=== PATIENT | female | born 1995 | race Caucasian/White ===

== ENCOUNTER 2018-08-14 10:08 | Inpatient (IN) ==
--- NOTE | 2018-08-14 10:28 | ED ---
History of Present Illness Service: [facility] [place] Care Physician: No Primary Care Physician Chief Complaint: Contractions History of Present Illness: This 23 y/o female , EGA 40 3/7 wks, presents to the OB ED with c/o ctxs. They started around 8 AM. +FM, No VB. She denies probs during this . She has had PNC at [facility]. Weeks Gestation:: 40 Para: 1 : 3 Review of Systems All other systems reviewed negative except as stated in HPI PMFSH - Medical / Surgical Hx Neg / Unobtainable Medical Problems Denied: Yes Surgical History: No Previous Surgery - Social History I have reviewed the patient's Social History: Yes - Tobacco History Smoking Status: Never smoker - Alcohol History How Often Do You Have a Drink Containing Alcohol: Never - Substance Use History Substance History: No History of Abuse - Travel History History of Recent Travel: No Medications and Allergies Allergies Allergy/AdvReac Type Severity Reaction Status Date / Time No Known Allergies Allergy Verified 08/14/18 10:29 Exam Narrative: GENERAL: Well-nourished, well-developed patient. SKIN: Warm and dry. HEAD: Normocephalic and atraumatic. EYES: No scleral icterus. No injection or drainage. ENT: No nasal drainage noted. Mucous membranes pink. Airway patent. NECK: Supple, trachea midline. No JVD. CARDIOVASCULAR: Regular rate and rhythm without murmurs, gallops, or rubs. RESPIRATORY: Breath sounds equal bilaterally. No accessory muscle use. ABDOMEN/GI: Abdomen soft, non-tender, bowel sounds present, no rebound, no guarding Gravid GENITOURINARY: External Genitalia: intact and normal in appearance BUS glands: [normal] Cervix: [Ant] Dilatation: [6-7] Effacement: [100] Station: [+1] Presentation: [vertex] Membranes: [intact] Uterine Contractions: [yes] FHT's: Category: [1] Baseline: [150] Reactive: [Yes] Variability: [Mod] Decels: [No] +Accels EXTREMITIES: No cyanosis or edema. BACK: Nontender without obvious deformity. No CVA tenderness. NEUROLOGICAL: Awake and alert. Motor and sensory grossly within normal limits. Five out of 5 muscle strength in all muscle groups. Normal speech. Results - Labs Group B Strep: Negative Assessment and Plan - Diagnosis (1) Uterine contractions during Code(s): O62.2 - Other uterine inertia Status: Acute (2) 40 weeks gestation of Code(s): Z3A.40 - 40 weeks gestation of Status: Acute - Plan Admit for labor Discharge Plan - Physicians Team ED Provider: Nini Huang Primary Care Provider: Primary Care Physici,No - Discharge Instructions Print Language: French
[2018-08-14] MEDS ORDERED: miSOPROStol 200 MCG Tablet RECTAL PRN (10:35)
[2018-08-14] MEDS ORDERED: Sodium Chlor 0.9% Inj 500 ML IV.SIG PRN (10:35)
[2018-08-14] MEDS ORDERED: Methylergonovine Inj 0.2 MG/ML Ampul IM PRN (10:35)
[2018-08-14] MEDS ORDERED: Carboprost Tromethamine Inj 250 MCG/ML Ampul IM PRN (10:35)
[2018-08-14] MEDS ORDERED: fentaNYL Citrate Inj 100 MCG/2 ML Ampul IV.PUSH PRN ×2 (10:35)
[2018-08-14] MEDS ORDERED: Naloxone Inj 0.4 MG/ML Vial IV.PUSH PRN ×2 (10:35→11:16)
[2018-08-14] MEDS ORDERED: Sod Chloride 0.9% Inj 1,000 ML IV.CONT PRN (10:35)
[2018-08-14] MEDS ORDERED: Tranexamic Acid Inj 1,000 MG in Sodium Chlor 0.9% Inj 100 ML IV.SIG PRN (10:35)
[2018-08-14] MEDS ORDERED: Silver Nitrate/Potassium Nitrate Applicator Sticks TOPICAL PRN (10:35)
[2018-08-14] MEDS ORDERED: Oxytocin 30 Units/500ml Premix 30 UNITS/500 ML BAG IV.SIG ONE (10:35)
[2018-08-14] MEDS ORDERED: fentaNYL Citrate Inj 100 MCG/2 ML Ampul ONE (10:37)
--- NOTE | 2018-08-14 10:39 | P.HPOB ---
History of Present Illness [place] [facility] [place] Physician: No Primary Care Physician Chief Complaint: Contractions History of Present Illness: This 23 y/o female , EGA 40 3/7 wks, presents to the OB ED with c/o ctxs. They started around 8 AM. +FM, No VB. She denies probs during this . She has had PNC at [facility]. Weeks Gestation:: 40 Para: 1 : 3 Review of Systems All other systems reviewed negative except as stated in HPI PMFSH - Medical / Surgical Hx Neg / Unobtainable Medical Problems Denied: Yes Surgical History: No Previous Surgery - Social History I have reviewed the patient's Social History: Yes - Tobacco History Smoking Status: Never smoker - Alcohol History How Often Do You Have a Drink Containing Alcohol: Never - Substance Use History Substance History: No History of Abuse - Travel History History of Recent Travel: No Medications and Allergies Allergies Allergy/AdvReac Type Severity Reaction Status Date / Time No Known Allergies Allergy Verified 08/14/18 10:29 Exam Narrative: GENERAL: Well-nourished, well-developed patient. SKIN: Warm and dry. HEAD: Normocephalic and atraumatic. EYES: No scleral icterus. No injection or drainage. ENT: No nasal drainage noted. Mucous membranes pink. Airway patent. NECK: Supple, trachea midline. No JVD. CARDIOVASCULAR: Regular rate and rhythm without murmurs, gallops, or rubs. RESPIRATORY: Breath sounds equal bilaterally. No accessory muscle use. ABDOMEN/GI: Abdomen soft, non-tender, bowel sounds present, no rebound, no guarding Gravid GENITOURINARY: External Genitalia: intact and normal in appearance BUS glands: [normal] Cervix: [Ant] Dilatation: [6-7] Effacement: [100] Station: [+1] Presentation: [vertex] Membranes: [intact] Uterine Contractions: [yes] FHT's: Category: [1] Baseline: [150] Reactive: [Yes] Variability: [Mod] Decels: [No] +Accels EXTREMITIES: No cyanosis or edema. BACK: Nontender without obvious deformity. No CVA tenderness. NEUROLOGICAL: Awake and alert. Motor and sensory grossly within normal limits. Five out of 5 muscle strength in all muscle groups. Normal speech. Results - Labs Group B Strep: Negative Assessment and Plan - Diagnosis (1) Uterine contractions during Code(s): O62.2 - Other uterine inertia Status: Acute (2) 40 weeks gestation of Code(s): Z3A.40 - 40 weeks gestation of Status: Acute - Plan Admit for labor Discharge Plan - Physicians Team ED Provider: Nini Huang Primary Care Provider: Primary Care Physici,No - Discharge Instructions Print Language: Urdu
[2018-08-14] MEDS ORDERED: Citric Acid/Sodium Citrate Liq 30 ML UDC PO SCH (10:45)
[2018-08-14 10:53] LABS: Baso % (Auto) 0.4 % (0.0-2.0); Eos % (Auto) 0.4 % (0.0-4.0); Hematocrit 36.3 % (35.0-46.0); Hemoglobin 12.4 gm/dL (11.6-15.3); Lymph # (Auto) 1.7 th/mm3 (1.0-4.8); Lymph % (Auto) 16.5 % (9.0-44.0); Mean Corpuscular HGB Conc 34.1 % (32.0-36.0); Mean Corpuscular Hemoglobin 29.2 pg (27.0-34.0); Mean Corpuscular Volume 85.7 fL (80.0-100.0); Mean Platelet Volume 8.5 fL (7.0-11.0); Mono # (Auto) 0.6 th/mm3 (0.0-0.9); Mono % (Auto) 6.1 % (0.0-8.0); Neut % (Auto) 76.6 % (16.0-70.0); Platelet Count 240 th/mm3 (150-450); Red Blood Count 4.24 mil/mm3 (4.00-5.30); Red Cell Distribution Width 13.5 % (11.6-17.2); White Blood Count 10.5 th/mm3 (4.0-11.0)
[2018-08-14] MEDS ORDERED: Lidocaine 1% Inj 50 ML Vial ONE (10:58)
--- NOTE | 2018-08-14 11:14 | P.OBDELI ---
Weeks Gestation: 40 Patient Started Active Labor: Yes Medical Induction of Labor: No Artificial Rupture of Membrane: No Anesthesia: Lidocaine local to perineum Episiotomy: none Vaginal Delivery: Spontaneous Presentation: Vertex Nuchal Cord: x1 Delayed Cord Clamping (45 sec): Yes Placenta: Spontaneous delivery Laceration: 2 deg Repair: Vicryl running (3-0) Infant: Male Infant Male A Infant Delivery Date: 08/14/18 Weight: 3.635 kg score (1 min): 8 score (5 min): 9
[2018-08-14] MEDS ORDERED: Oxytocin 30 Units/500ml Premix 30 UNITS/500 ML BAG IV.CONT PRN (11:16)
[2018-08-14] MEDS ORDERED: Acetaminophen 325 MG Tablet PO PRN (11:16)
[2018-08-14] MEDS ORDERED: Benzocaine 20% Top Spray 60 ML Can TOPICAL PRN (11:16)
[2018-08-14] MEDS ORDERED: Witch Hazel 50%/Glyderin 12.5% 40 Pad Jar RECTAL PRN (11:16)
[2018-08-14] MEDS ORDERED: Bisacodyl 10 MG Supp RECTAL PRN (11:16)
[2018-08-14 11:19] VITALS: RESP 18
[2018-08-14 12:25] LABS: Amorphous Sediment,Urine Rare /hpf; Bilirubin,Urine Negative (Negative); Clarity,Urine Hazy (Clear); Color,Urine Yellow (Yellw/Straw); Glucose,Urine (UA) Negative (Negative); Leukocyte Esterase,Urine Negative (Negative); Mucus,Urine Few /lpf (Occasional); Nitrite,Urine Negative (Negative); Specific Gravity,Urine 1.013 (1.002-1.035); Squamous Epithelial Cell,Urine 1 /hpf (0-5)
[2018-08-14 12:33] LABS: Amphetamine Screen,Urine Neg (Neg); Barbiturate Screen,Urine Neg (Neg); Cannabinoid Screen,Urine Neg (Neg); Cocaine Screen,Urine Neg (Neg)
[2018-08-14 12:36] LABS: Opiate Screen,Urine Neg (Neg)
[2018-08-14] MEDS ORDERED: Diphtheria/Tetanus/Pertussis Vaccine Inj 0.5 ML Syringe IM ONE (16:00)
[2018-08-14] MEDS ORDERED: Measles/Mumps/Rubella Vaccine Inj 0.5 ML Vial SQ ONE (16:00)
[2018-08-14] MEDS ORDERED: Zolpidem Tartrate 5 MG Tablet PO PRN (21:00)
--- NOTE | 2018-08-15 07:24 | P.PNOB ---
Subjective Post day: 1 Interval history: Pt seen and examined this morning. day # 1 AFVSS overnight. Pain is well controlled. Decreased lochia. Denies dysuria. No breast tenderness. Appetite good. No nausea or vomiting. Endorses one episode of chills overnight night, now resolved. Ambulating well. Denies calf pain or shortness of breath. Otherwise, she is doing well this morning and has no other concerns. Objective Vital Signs/I&O: Vital Signs 08/14/18 10:34 08/14/18 10:45 08/14/18 11:15 Temperature 98.4 F Pulse Rate 95 H 84 Respiratory Rate 20 18 Blood Pressure 139/87 133/68 08/14/18 11:30 08/14/18 11:45 08/14/18 12:00 Temperature Pulse Rate 91 H 87 90 Respiratory Rate 18 18 18 Blood Pressure 132/74 130/70 123/74 08/14/18 12:15 08/14/18 13:45 08/14/18 19:43 Temperature 98.8 F 98.0 F Pulse Rate 93 H 90 83 Respiratory Rate 18 18 Blood Pressure 128/60 129/77 130/68 Result Diagrams: 08/14/18 10:33 Objective Remarks: GENERAL: Well-nourished, well-developed patient. CARDIOVASCULAR: Regular rate and rhythm without murmurs, gallops, or rubs. RESPIRATORY: Breath sounds equal bilaterally. No accessory muscle use. ABDOMEN/GI: Abdomen soft, non-tender. Fundus: Firm, non-tender at umbilicus. GENITOURINARY: Light bleeding. EXTREMITIES: No cyanosis or edema, non-tender, without signs of DVT. +2 PD pulses BL. Medications and IVs: Active Medications Acetaminophen (Tylenol) 650 mg PO Q4H PRN PRN Reason: PAIN SCALE 1 TO 2 Al Hydroxide/Mg Hydroxide (Milk Of Magnesia Liq) 30 ml PO Q12H PRN PRN Reason: Mild Constipation Benzocaine (Americaine 20% [place]) 1 spray TOPICAL Q4H PRN PRN Reason: For Perineum Discomfort Bisacodyl (Dulcolax Supp) 10 mg RECTAL DAILY PRN PRN Reason: SEVERE CONSITIPATION Lactated Ringer's (Lr 1000 Ml Inj) 1,000 mls @ 125 mls/hr IV.CONT .Q8H IRIS Last Admin: 08/15/18 06:19 Dose: Not Given Oxytocin (Pitocin 30 Units/Ns 500 Ml Premix) 30 units in 500 mls @ 100 mls/hr IV.CONT UNSCH PRN PRN Reason: Heavy bleeding Ibuprofen (Motrin) 800 mg PO Q8H PRN PRN Reason: For Cramping Last Admin: 08/14/18 15:35 Dose: 800 mg Lactulose (Lactulose Liq) 30 ml PO DAILY PRN PRN Reason: SEVERE CONSITIPATION Naloxone HCl (Narcan Inj) 0.1 mg IV.PUSH Q2M PRN PRN Reason: for opiate reversal Ondansetron HCl (Zofran Inj) 4 mg IV.PUSH Q6H PRN PRN Reason: NAUSEA OR VOMITING Ondansetron HCl (Zofran Odt) 4 mg PO Q6H PRN PRN Reason: NAUSEA OR VOMITING Oxycodone/Acetaminophen (Percocet 5/325 Mg) 1 tab PO Q4H PRN PRN Reason: PAIN SCALE 3 TO 5 Senna/Docusate Sodium (Pat-Colace) 1 tab PO BID [facility] Sennosides (Senokot) 17.2 mg PO Q12H PRN PRN Reason: Moderate Constipation Sodium Chloride (Ns Flush) 2 ml IV.FLUSH BID [facility] Last Admin: 08/14/18 22:38 Dose: Not Given Sodium Chloride (Ns Flush) 2 ml IV.FLUSH PRN PRN PRN Reason: FLUSH AFTER USING IV ACCESS Witch Jeni/Glycerin (Tucks Pads) 1 applicatio RECTAL QID PRN PRN Reason: HEMORRHOIDS Zolpidem Tartrate (Ambien) 5 mg PO HS PRN PRN Reason: SLEEP Assessment and Plan - Diagnosis (1) Vaginal delivery Code(s): O80 - Encounter for full-term uncomplicated delivery Status: Acute Plan: 23 y/o female who is PPD#1 s/p with 2nd degree tear. -Continue routine care. -Percocet and Motrin PRN pain. -Encouraged OOB. Advised pelvic rest for 6 wks. -Re: ctrl, she would like take time to consider and research her options. -Anticipate discharge tomorrow. caroline Huang MD - Plan Admit for labor - Attending Attestation The exam, history, and the medical decision-making described in the above note were completed with the assistance of the resident physician. I reviewed and agree with the findings presented. I attest that I had a [id number] encounter with the patient on the same day, and personally performed and documented my assessment and findings in the medical record.
[2018-08-15] MEDS: Senna/Docusate Sodium 8.6/50 MG Tablet PO SCH ×2 (07:51→08:46)
[2018-08-15 09:51] VITALS: BP 126/64; PULSE 76; TEMP 97.9
== END 2018-08-15 16:02 | disposition home or self-care (01) | DRG 807 ==
LOC: HOBED 10:08 → H2E 10:30 → H1EA 12:56
PROVIDERS: ADMIT Obstetrics & Gynecology; ATTEND Obstetrics & Gynecology
CPT/HCPCS: 59025; 80307; 81001; 83518; 84112; 85025; 86900; 86901; 99285; J2590; J3010; J7120